=== PATIENT | male | born 1995 | race African-American/Black ===

== ENCOUNTER 2022-01-20 21:57 | Emergency (ER) | payer BC, SELFPAY ==
--- OUTSIDE RECORDS SUMMARY | 2022-01-20 22:06 | XMS REPORT | Continuity of Care Document ---
:1995 Author Organization [facility] t Address [address] [place] [address] Care Team Providers Name Role Phone PCP, PATIENT DOES NOT HAVE A Primary Care Physician ELROY Monique Attending Clinician Unavailable Elroy Velasquez MD Attending Clinician 2, [facility] Attending Clinician Unavailable Doctor Unassigned, [place] Attending Clinician Unavailable ELROY VELASQUEZ Admitting Clinician Unavailable Payers Payer Name Policy Type Policy Number Effective Date Expiration Date S astrid [employer] GENERIC [id number] 2021 00:00:00 Problems Condition Condition Condition Status Onset Resolution Last Treating Co mments Source Name Details Category Date Date Treatment Clinician Date Abnormal Abnormal Disease Active Unive rs weight weight 5-08 ity of gain gain 00:00: [address] Acquired Acquired Disease Active Unive rs acanthosis acanthosis 5-08 it y [facility] [address] Esophageal Esophageal Disease Active U nivers reflux reflux 5-08 ity of 00:00: [address] Allergies, Adverse Reactions, Alerts Allergy Allergy Status Severity Reaction(s) Onset Inactive Treating Comm ents Source Name Type Date Date Clinician NO KNOWN Drug Active Univers ALLERGIE Class ity of [facility] Social History Social Habit Start Date Stop Date Quantity Comments Source Exposure to 2021-07-04 2021-07-14 Not sure [facility] SARS-CoV-2 (event) 00:00:00 13:12:00 Medica l Branch Alcohol intake 2014-10-15 2014-10-15 0 /d [facility] 00:00:00 00:00:00 Medical Branch Sex Ass[birth year] At [birth year] [facility] [place] 00:00:00 00:00:00 Medical Branch Smoking Status Start Date Stop Date Source Never smoker [facility] Medications Ordered Filled Start Stop Current Ordering Indication Dosage Frequency Signature Comments Components Source Medication Medication Date Date Medication? Clinician (SIG) Name Name atomoxetine Yes Please Univ ers (STRATTERA) 9-25 take 40 mg it y of 40 mg 00:00: daily for [place] capsule 00 the first Medical 3 days. Branch After that please increase to 80 mg daily. atomoxetine Yes Please Univ ers (STRATTERA) 9-25 take 40 mg it y of 40 mg 00:00: daily for [place] capsule 00 the first Medical 3 days. Branch After that please increase to 80 mg daily. fluticasone Yes [id number] 2{spray Use 2 Univers (FLONASE) 4-18 } Sprays in ity o f 50 00:00: each [place] mcg/actuati 00 nostril Medic al on nasal daily. Branch spray fluticasone Yes [id number] 2{spray Use 2 Univers (FLONASE) 4-18 } Sprays in ity o f 50 00:00: each [place] mcg/actuati 00 nostril Medic al on nasal daily. Branch spray Immunizations Ordered Filled Immunization Date Status Comments Sour e Immunization Name Name TDAP (ADACEL) 2014-10-15 Completed [place] of VACCINE 00:00:00 [facility] HPV9 2014-10-15 Completed [facility] 00:00:00 [facility] TDAP (ADACEL) 2014-10-15 Completed University of VACCINE 00:00:00 [facility] HPV9 2014-10-15 Completed [facility] 00:00:00 [facility] Vital Signs Vital Name Observation Time Observation Value Comments Source Systolic blood 2021-06-23 18:34:00 126 mm[Hg] Univer sity of pressure [facility] Diastolic blood 2021-06-23 18:34:00 80 mm[Hg] Unive rsity of [facility] Heart rate 2021-06-23 18:34:00 72 /[facility] Respiratory rate 2021-06-23 18:34:00 17 /min [facility] Body height 2021-06-23 18:34:00 [facility]1 [facility] Body weight 2021-06-23 18:34:00 126.128 [facility] BMI 2021-06-23 18:34:00 46.27 kg/m2 [facility] Oxygen saturation in 2021-06-23 18:34:00 97 /min University Arterial blood by [facility] Pulse oximetry Branch Procedures This patient has no known procedures. Encounters Start End Encounter Admission Attending Care Care Encounter Source Date/Time Date/Time Type Type Clinicians Facility Department ID 2021-08-02 2021-08-02 Outpatient Cristal [facility] [id number] Univers 08:30:00 08:30:00 SENDIL [facility] 2021-08-02 2021-08-02 Outpatient Cristal [facility] [id number] Univers 08:30:00 08:30:00 SENDIL [facility] 2021-08-01 2021-08-01 Telephone Eva [facility] [id number] Univers 00:00:00 00:00:00 Elroy BASSETT [id number] [facility] [id number] Wesley BURNETTESSIO [id number] [address] 2021-07-14 2021-07-14 Outpatient Cristal [facility] [id number] Univers 13:00:00 23:59:00 [facility] 2021-07-14 Outpatient Cristal [facility] [id number] Univers 14:00:00 14:00:00 [facility]-07-[facility] 2021-07-14 Outpatient Cristal [facility] [id number] Univers 13:00:00 13:00:00 [facility] 2021-06-23 2021-06-23 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 [id number] [id number] Mi dical NAL 353 [facility] 2021-06-23 2021-06-23 Outpatient R [facility] [id number] [facility] 13:00:00 14:01:52 [facility] 2021-06-23 2021-06-23 Office Eva [facility] [id number] Univers 13:00:00 14:01:52 Visit Sendleah BASSETT [id number] [id number] [id number] [facility]59 [facility] 2021-06-23 2021-06-23 Outpatient R [facility] [id number] Univers 14:00:00 14:00:00 SENDIL itfuad [facility] 2021-06-23 2021-06-23 Orders Doctor JACKSON [id number] Univers 00:00:00 00:00:00 Only Unassigned, GAYATRI [id number] ity of [place] [facility] [id number] [place] [phone] [place] [id number] Branch Results This patient has no known results.
--- NOTE | 2022-01-20 23:55 | ER ---
Nurse's Notes [facility] Name: Gregory Leonard Age: 26 yrs Sex: Male : 1995 Arrival Date: 01/20/2022 Time: 22:01 Bed IW2 Private MD: Diagnosis: Tinea cruris Presentation: 01/20 22:27 Chief complaint: Itchy testicles since soap change 2 weeks ago. Denies pain/urinary hb s/s. Coronavirus screen: At this time, the client does not indicate any symptoms associated with coronavirus-19. Ebola Screen: No symptoms or risks identified at this time. Risk Assessment: Do you want to hurt yourself or someone else? Patient reports no desire to harm self or others. Onset of symptoms was January 20, 2022. 22:27 Method Of Arrival: Ambulatory hb 22:27 Acuity: DANTE 4 hb Historical: - Allergies: 22:29 No Known Allergies; hb - Home Meds: 22:29 None [Active]; hb - PMHx: 22:29 None; hb - PSHx: 22:29 None; hb - Immunization history:: Adult Immunizations up to date. - Social history:: Smoking status: Patient denies any tobacco usage or history of. Vital Signs: 22:27 BP 161 / 100; Pulse 68; Resp 16; Temp 98.3; Pulse Ox 100% on R/A; Weight 127.01 kg; hb Height 5 ft. 5 in. (165.10 cm); Pain 8/10; 22:27 Body Mass Index 46.59 (127.01 kg, 165.10 cm) hb ED Course: 22:01 Patient arrived in ED. as 22:06 Massimo Marc PA is PHCP. cp 22:06 Tyler Bee MD is Attending Physician. cp 22:29 Triage completed. hb 22:29 Arm band placed on. hb Administered Medications: No medications were administered Outcome: 23:54 Discharge ordered by MD. cp 23:58 Patient left the ED. hb Signatures: Julia Ramires as Massimo Marc PA PA cp Baxter, Heather, RN RN hb Corrections: (The following items were deleted from the chart) 22:30 22:29 PMHx: None; hb hb
--- NOTE | 2022-01-20 23:55 | EDPHYS ---
Physician Documentation [facility] Name: Gregory Leonard Age: 26 yrs Sex: Male : 1995 Arrival Date: 01/20/2022 Time: 22:01 Bed IW2 Private MD: ED Physician Tyler Bee HPI: 01/20 23:50 This 26 yrs old Black Male presents to ER via Ambulatory with complaints of Itching, cp Allergic Reaction. 23:50 The patient presents with scrotal itching. Onset: The symptoms/episode began/occurred cp 1-2 weeks ago. Associated signs and symptoms: Pertinent negatives: dysuria, hematuria, pain, rash, skin lesions. Severity of symptoms: in the emergency department the symptoms are unchanged, despite home interventions. Historical: - Allergies: 22:29 No Known Allergies; hb - Home Meds: 22:29 None [Active]; hb - PMHx: 22:29 None; hb - PSHx: 22:29 None; hb - Immunization history:: Adult Immunizations up to date. - Social history:: Smoking status: Patient denies any tobacco usage or history of. ROS: 23:51 Constitutional: Negative for body aches, chills, fever, poor PO intake. cp 23:51 Skin: Positive for of the scrotal, itching. Exam: 23:52 Constitutional: The patient appears in no acute distress, alert, awake, well developed, cp well nourished, obese. 23:52 Cardiovascular: Rate: normal. 23:52 Abdomen/GI: Inspection: abdomen appears normal, Palpation: abdomen is soft and non-tender, in all quadrants. 23:52 : Male external genitalia: swelling: is not appreciated, scrotal skin itching. Vital Signs: 22:27 BP 161 / 100; Pulse 68; Resp 16; Temp 98.3; Pulse Ox 100% on R/A; Weight 127.01 kg; hb Height 5 ft. 5 in. (165.10 cm); Pain 8/10; 22:27 Body Mass Index 46.59 (127.01 kg, 165.10 cm) hb MDM: 23:11 Patient medically screened. cp 23:54 Data reviewed: vital signs, nurses notes. cp 23:54 Counseling: I had a detailed discussion with the patient and/or guardian regarding: the cp historical points, exam findings, and any diagnostic results supporting the discharge/admit diagnosis, to return to the emergency department if symptoms worsen or persist or if there are any questions or concerns that arise at home. Administered Medications: No medications were administered Disposition: 01/21 00:01 Co-signature as Attending Physician, Tyler Bee MD I agree with the assessment and kdr plan of care. Disposition Summary: 01/20/22 23:54 Discharge Ordered Location: Home cp Problem: new cp Symptoms: are unchanged cp Condition: Stable cp Diagnosis - Tinea cruris cp Followup: cp - With: Private Physician - When: 1 week - Reason: Worsening of condition Discharge Instructions: - Discharge Summary Sheet cp - Jock Itch cp Forms: - Medication Reconciliation Form cp - Thank You Letter cp - Antibiotic Education cp - Prescription Opioid Use cp Prescriptions: - Nystatin-Triamcinolone 100,000-0.1 unit/gram-% Topical Ointment - apply 1 application by TOPICAL route 2 times per day for 8-10 days; 45 gram; cp Refills: 0, Product Selection Permitted Signatures: Tyler Bee MD MD [facility] Massimo Marc PA PA cp Lizzie Pathak, RN RN hb Corrections: (The following items were deleted from the chart) 01/20 22:30 22:29 PMHx: None; hb hb
[2022-01-21 15:54] VITALS: BP 161/100; TEMP 98.3; O2SAT 100
== END 2022-01-20 23:58 | disposition home or self-care (01) ==
LOC: ER 21:57
DX: B35.6 Tinea cruris (principal)
CPT/HCPCS: 99281